=== PATIENT | male | born 1965 | race African-American/Black ===

== ENCOUNTER 2019-11-03 10:22 | Outpatient (CLI) | payer BC ==
--- NOTE | 2019-11-03 15:05 | NM ---
Exam: Nuclear medicine bone scan: HISTORY: Malignant neoplasm of prostate Patient was injected with 31.7 mCi technetium 99m MDP intravenously. Whole body images are performed. No scan evidence for bone metastasis. There is bilateral renal and bladder activity. IMPRESSION: Unremarkable total body bone scan. No scan evidence for metastasis.
== END 2019-11-03 10:23 | disposition home or self-care (01) ==
LOC: NM 10:22
PROVIDERS: ATTEND Internal Medicine Interventional Cardiology
DX: C61 Malignant neoplasm of prostate (principal)
CPT/HCPCS: 78306; A9503

== ENCOUNTER 2021-05-27 11:36 | Inpatient (IN) | payer MEDICARE ==
[2021-05-27] MEDS ORDERED: niCARdipine 20MG In NaCl 20 MG/200 ML BAG ONE ×2 (11:56→13:36)
[2021-05-27] MEDS ORDERED: SODIUM CHLORIDE 0.9% IVPB PRN ×2 (13:40→14:14)
[2021-05-27] MEDS ORDERED: NICARDIPINE IVPB PRN ×2 (13:40→14:14)
[2021-05-27 15:38] LABS: CKMB 4.4 ng/mL (0-6.6)
[2021-05-27] MEDS: hydrALAZINE 25 MG TAB PO SCH (21:00)
[2021-05-27] MEDS ORDERED: Pravastatin Sodium 20 MG TAB PO SCH (21:00)
[2021-05-27] MEDS: Carvedilol 6.25 MG TAB PO SCH (21:58)
[2021-05-27] MEDS: Isosorbide Dinitrate 20 MG TAB PO SCH (21:59)
[2021-05-27] MEDS: Simvastatin 10 MG TAB PO SCH (21:59)
[2021-05-27 22:26] LABS: HBSAg Index 0.23 S/CO (0-0.99); Hep B Surf Ag Non-Reactive S/CO (NonReactive)
[2021-05-28] MEDS: hydrALAZINE 25 MG TAB PO SCH ×3 (00:12→21:47)
[2021-05-28 04:47] LABS: #Eosinphils 0.2 thou/uL (0.0-0.7); #Monocytes 0.6 thou/uL (0.11-0.59); #Neutrophils 3.6 thou/uL (1.40-6.50); %Basophils 0.7 % (0.0-1.0); %Eosinophils 4.3 % (0.0-10.0); %Monocytes 10.5 % (0.0-10.0); %Neutrophils 66.6 % (42.0-75.0); Hemoglobin 9.7 g/dL (14.0-18.0); Mean Corpuscular HGB CONC 30.4 g/dL (32.0-36.0); Mean Corpuscular Hemoglobin 31.1 pg (27.0-31.0); Platelet Count 274 thou/uL (130-400); RBC Distribution Width 18.7 % (11.5-14.5); Red Blood Cell (RBC) Count 3.11 mill/uL (4.70-6.10); White Blood Cell (WBC) Count 5.4 thou/uL (4.8-10.8)
[2021-05-28 05:04] LABS: Anion Gap 13 mmol/L (10-20); BUN (Urea Nitrogen) 16 mg/dL (8.4-25.7); Calc. Creatinine Clearance 24 mL/min (70-130); Calcium 8.4 mg/dL (7.8-10.44); Carbon Dioxide 30 mmol/L (22-29); Cardiac Risk 4.2 (Less than 4.5); Chloride 97 mmol/L (98-107); Cholesterol 194 mg/dl (< 200 Desired); Glucose 95 mg/dL (70-105); HDL Cholesterol 46 mg/dL (>60 Neg Risk); LDL Cholesterol, Calculated 128 mg/dL; Potassium 4.2 mmol/L (3.5-5.1); Sodium 136 mmol/L (136-145); Triglycerides 102 mg/dL (Less than 150)
[2021-05-28] MEDS: Isosorbide Dinitrate 20 MG TAB PO SCH ×2 (10:00→21:48)
[2021-05-28] MEDS: Carvedilol 6.25 MG TAB PO SCH ×2 (10:00→21:47)
[2021-05-28] MEDS ORDERED: niCARdipine 20MG In NaCl 20 MG/200 ML BAG ONE (14:31)
[2021-05-28] MEDS ORDERED: Dextrose 5% in Water 1,000 ML IV PRN (14:55)
[2021-05-28] MEDS ORDERED: Dextrose 50% Abboject 50 ML SYRINGE SLOW IVP PRN (14:55)
[2021-05-28] MEDS ORDERED: HumaLOG 300 UNITS/3 ML VIAL SC PRN ×2 (14:55)
[2021-05-28] MEDS: Simvastatin 10 MG TAB PO SCH (21:48)
[2021-05-29] MEDS ORDERED: niCARdipine 40MG In NaCl 40 MG/200 ML BAG IVPB SCH (05:00)
[2021-05-29] MEDS ORDERED: niCARdipine 40MG In NaCl 40 MG/200 ML BAG IVPB PRN (05:00)
[2021-05-29 06:02] LABS: Anion Gap 17 mmol/L (10-20); BUN (Urea Nitrogen) 24 mg/dL (8.4-25.7); Calc. Creatinine Clearance 18 mL/min (70-130); Calcium 8.2 mg/dL (7.8-10.44); Carbon Dioxide 26 mmol/L (22-29); Chloride 99 mmol/L (98-107); Glucose 93 mg/dL (70-105); Potassium 4.6 mmol/L (3.5-5.1); Sodium 137 mmol/L (136-145)
[2021-05-29] MEDS: hydrALAZINE 25 MG TAB PO SCH ×2 (11:01→20:58)
[2021-05-29] MEDS: Isosorbide Dinitrate 20 MG TAB PO SCH ×2 (11:01→20:59)
[2021-05-29] MEDS: Carvedilol 6.25 MG TAB PO SCH ×2 (11:01→20:59)
[2021-05-29] MEDS: Amlodipine 10 MG TAB PO SCH (11:02)
[2021-05-29] MEDS: Simvastatin 10 MG TAB PO SCH (20:59)
[2021-05-30] MEDS: hydrALAZINE 20 MG/ML VIAL SLOW IVP PRN (06:24)
[2021-05-30] MEDS: hydrALAZINE 25 MG TAB PO SCH ×2 (07:49→20:15)
[2021-05-30] MEDS: Amlodipine 10 MG TAB PO SCH (07:49)
[2021-05-30] MEDS: Isosorbide Dinitrate 20 MG TAB PO SCH ×2 (07:49→20:14)
[2021-05-30] MEDS: Carvedilol 6.25 MG TAB PO SCH ×2 (07:49→20:15)
[2021-05-30 09:56] VITALS: BMI 30.4
[2021-05-30] MEDS ORDERED: hydrALAZINE 25 MG TAB PO SCH (10:15)
[2021-05-30] MEDS ORDERED: Hydrochlorothiazide 25 MG TAB PO SCH ×2 (10:15→10:30)
[2021-05-30] MEDS: Simvastatin 10 MG TAB PO SCH (20:14)
[2021-05-31] MEDS: Hydrochlorothiazide 25 MG TAB PO SCH (08:16)
[2021-05-31] MEDS: Carvedilol 6.25 MG TAB PO SCH ×2 (08:16→20:40)
[2021-05-31] MEDS: Amlodipine 10 MG TAB PO SCH (08:17)
[2021-05-31] MEDS: hydrALAZINE 25 MG TAB PO SCH ×2 (08:17→20:39)
[2021-05-31] MEDS: Isosorbide Dinitrate 20 MG TAB PO SCH ×2 (08:17→20:39)
[2021-05-31] MEDS: hydrALAZINE 20 MG/ML VIAL SLOW IVP PRN (16:22)
[2021-05-31] MEDS: Simvastatin 10 MG TAB PO SCH (20:39)
[2021-06-01] MEDS: Hydrochlorothiazide 25 MG TAB PO SCH (08:08)
[2021-06-01] MEDS: hydrALAZINE 25 MG TAB PO SCH ×2 (08:08→20:42)
[2021-06-01] MEDS: Isosorbide Dinitrate 20 MG TAB PO SCH ×2 (08:08→20:43)
[2021-06-01] MEDS: Amlodipine 10 MG TAB PO SCH (08:08)
[2021-06-01] MEDS: Carvedilol 6.25 MG TAB PO SCH ×2 (08:08→20:42)
[2021-06-01] MEDS: Simvastatin 10 MG TAB PO SCH (20:41)
[2021-06-02 05:15] LABS: #Eosinphils 0.1 thou/uL (0.0-0.7); #Lymphocytes 1.1 thou/uL (1.20-3.40); #Monocytes 0.6 thou/uL (0.11-0.59); %Eosinophils 3.1 % (0.0-10.0); %Lymphocytes 22.1 % (21.0-51.0); %Monocytes 13.1 % (0.0-10.0); %Neutrophils 61.7 % (42.0-75.0); Hemoglobin 10.6 g/dL (14.0-18.0); Mean Corpuscular HGB CONC 31.8 g/dL (32.0-36.0); Mean Corpuscular Hemoglobin 31.4 pg (27.0-31.0); Mean Corpuscular Volume 98.8 fL (78.0-98.0); Mean Platelet Volume 8.5 fL (7.4-10.4); Platelet Count 261 thou/uL (130-400); RBC Distribution Width 17.5 % (11.5-14.5); Red Blood Cell (RBC) Count 3.39 mill/uL (4.70-6.10); White Blood Cell (WBC) Count 4.8 thou/uL (4.8-10.8)
[2021-06-02 05:33] LABS: Anion Gap 15 mmol/L (10-20); BUN (Urea Nitrogen) 31 mg/dL (8.4-25.7); Calc. Creatinine Clearance 13 mL/min (70-130); Calcium 9.1 mg/dL (7.8-10.44); Carbon Dioxide 29 mmol/L (22-29); Chloride 97 mmol/L (98-107); Glucose 105 mg/dL (70-105); Sodium 137 mmol/L (136-145)
[2021-06-02] MEDS: hydrALAZINE 25 MG TAB PO SCH ×2 (09:08→21:03)
[2021-06-02] MEDS: Carvedilol 6.25 MG TAB PO SCH ×2 (09:09→21:03)
[2021-06-02] MEDS: Isosorbide Dinitrate 20 MG TAB PO SCH ×2 (09:09→21:03)
[2021-06-02] MEDS: Amlodipine 10 MG TAB PO SCH (09:09)
[2021-06-02] MEDS: Hydrochlorothiazide 25 MG TAB PO SCH (09:09)
[2021-06-02] MEDS: Simvastatin 10 MG TAB PO SCH (21:04)
[2021-06-03 05:50] LABS: #Eosinphils 0.2 thou/uL (0.0-0.7); #Lymphocytes 1.1 thou/uL (1.20-3.40); #Monocytes 0.6 thou/uL (0.11-0.59); #Neutrophils 3.5 thou/uL (1.40-6.50); %Basophils 0.2 % (0.0-1.0); %Eosinophils 3.3 % (0.0-10.0); %Lymphocytes 20.5 % (21.0-51.0); %Monocytes 11.2 % (0.0-10.0); %Neutrophils 64.8 % (42.0-75.0); Hemoglobin 10.6 g/dL (14.0-18.0); Mean Corpuscular HGB CONC 32.6 g/dL (32.0-36.0); Mean Corpuscular Hemoglobin 31.9 pg (27.0-31.0); Mean Platelet Volume 8.4 fL (7.4-10.4); Platelet Count 279 thou/uL (130-400); RBC Distribution Width 17.3 % (11.5-14.5); Red Blood Cell (RBC) Count 3.31 mill/uL (4.70-6.10); White Blood Cell (WBC) Count 5.4 thou/uL (4.8-10.8)
[2021-06-03 06:12] LABS: Anion Gap 16 mmol/L (10-20); BUN (Urea Nitrogen) 40 mg/dL (8.4-25.7); Calc. Creatinine Clearance 9 mL/min (70-130); Calcium 9.1 mg/dL (7.8-10.44); Carbon Dioxide 29 mmol/L (22-29); Chloride 98 mmol/L (98-107); Glucose 110 mg/dL (70-105); Sodium 139 mmol/L (136-145)
[2021-06-03] MEDS: Amlodipine 10 MG TAB PO SCH (09:24)
[2021-06-03] MEDS: Carvedilol 6.25 MG TAB PO SCH ×2 (09:24→21:37)
[2021-06-03] MEDS: hydrALAZINE 25 MG TAB PO SCH ×2 (09:25→21:38)
[2021-06-03] MEDS: Hydrochlorothiazide 25 MG TAB PO SCH (09:25)
[2021-06-03] MEDS: Isosorbide Dinitrate 20 MG TAB PO SCH ×2 (09:25→21:39)
[2021-06-03] MEDS: Simvastatin 10 MG TAB PO SCH (21:39)
[2021-06-04 04:52] LABS: #Eosinphils 0.2 thou/uL (0.0-0.7); #Lymphocytes 1.2 thou/uL (1.20-3.40); #Monocytes 0.7 thou/uL (0.11-0.59); #Neutrophils 3.7 thou/uL (1.40-6.50); %Basophils 0.3 % (0.0-1.0); %Eosinophils 2.6 % (0.0-10.0); %Lymphocytes 21.5 % (21.0-51.0); %Monocytes 11.9 % (0.0-10.0); %Neutrophils 63.7 % (42.0-75.0); Hemoglobin 10.9 g/dL (14.0-18.0); Mean Corpuscular HGB CONC 31.6 g/dL (32.0-36.0); Mean Corpuscular Hemoglobin 31.2 pg (27.0-31.0); Mean Corpuscular Volume 98.7 fL (78.0-98.0); Mean Platelet Volume 8.6 fL (7.4-10.4); Platelet Count 284 thou/uL (130-400); RBC Distribution Width 17.3 % (11.5-14.5); White Blood Cell (WBC) Count 5.7 thou/uL (4.8-10.8)
[2021-06-04 05:09] LABS: Anion Gap 16 mmol/L (10-20); BUN (Urea Nitrogen) 25 mg/dL (8.4-25.7); Calc. Creatinine Clearance 12 mL/min (70-130); Calcium 9.7 mg/dL (7.8-10.44); Carbon Dioxide 30 mmol/L (22-29); Chloride 98 mmol/L (98-107); Glucose 112 mg/dL (70-105); Potassium 4.6 mmol/L (3.5-5.1); Sodium 139 mmol/L (136-145)
[2021-06-04] MEDS: Hydrochlorothiazide 25 MG TAB PO SCH (08:51)
[2021-06-04] MEDS: Isosorbide Dinitrate 20 MG TAB PO SCH ×2 (08:51→20:10)
[2021-06-04] MEDS: Carvedilol 6.25 MG TAB PO SCH ×2 (08:52→20:09)
[2021-06-04] MEDS: Amlodipine 10 MG TAB PO SCH (08:52)
[2021-06-04] MEDS: hydrALAZINE 25 MG TAB PO SCH ×2 (08:52→20:10)
[2021-06-04] MEDS: Simvastatin 10 MG TAB PO SCH (20:10)
[2021-06-05 04:56] LABS: #Eosinphils 0.2 thou/uL (0.0-0.7); #Lymphocytes 1.4 thou/uL (1.20-3.40); #Monocytes 0.8 thou/uL (0.11-0.59); #Neutrophils 4.2 thou/uL (1.40-6.50); %Basophils 0.3 % (0.0-1.0); %Eosinophils 2.7 % (0.0-10.0); %Lymphocytes 21.6 % (21.0-51.0); %Monocytes 12.1 % (0.0-10.0); %Neutrophils 63.3 % (42.0-75.0); Hemoglobin 11.1 g/dL (14.0-18.0); Mean Corpuscular Hemoglobin 31.9 pg (27.0-31.0); Mean Corpuscular Volume 99.5 fL (78.0-98.0); Mean Platelet Volume 8.6 fL (7.4-10.4); Platelet Count 296 thou/uL (130-400); RBC Distribution Width 17.3 % (11.5-14.5); Red Blood Cell (RBC) Count 3.49 mill/uL (4.70-6.10); White Blood Cell (WBC) Count 6.6 thou/uL (4.8-10.8)
[2021-06-05 05:20] LABS: Anion Gap 14 mmol/L (10-20); BUN (Urea Nitrogen) 40 mg/dL (8.4-25.7); Calc. Creatinine Clearance 10 mL/min (70-130); Calcium 9.4 mg/dL (7.8-10.44); Carbon Dioxide 29 mmol/L (22-29); Chloride 97 mmol/L (98-107); Glucose 103 mg/dL (70-105); Potassium 4.4 mmol/L (3.5-5.1); Sodium 136 mmol/L (136-145)
[2021-06-05] MEDS: Isosorbide Dinitrate 20 MG TAB PO SCH ×2 (13:32→20:37)
[2021-06-05] MEDS: Amlodipine 10 MG TAB PO SCH (13:33)
[2021-06-05] MEDS: Carvedilol 6.25 MG TAB PO SCH ×2 (13:34→20:36)
[2021-06-05] MEDS: hydrALAZINE 25 MG TAB PO SCH ×2 (13:34→20:36)
[2021-06-05] MEDS: Hydrochlorothiazide 25 MG TAB PO SCH (13:34)
[2021-06-05] MEDS: Simvastatin 10 MG TAB PO SCH (20:38)
[2021-06-06] MEDS: Carvedilol 6.25 MG TAB PO SCH ×2 (00:16→08:01)
[2021-06-06] MEDS: Isosorbide Dinitrate 20 MG TAB PO SCH ×2 (00:17→08:01)
[2021-06-06 05:13] LABS: #Basophils 0.1 thou/uL (0.0-0.2); #Eosinphils 0.1 thou/uL (0.0-0.7); #Lymphocytes 1.3 thou/uL (1.20-3.40); #Neutrophils 4.9 thou/uL (1.40-6.50); %Basophils 0.8 % (0.0-1.0); %Eosinophils 1.3 % (0.0-10.0); %Monocytes 13.6 % (0.0-10.0); %Neutrophils 66.3 % (42.0-75.0); Hemoglobin 10.3 g/dL (14.0-18.0); Mean Corpuscular HGB CONC 32.2 g/dL (32.0-36.0); Mean Corpuscular Hemoglobin 31.7 pg (27.0-31.0); Mean Corpuscular Volume 98.6 fL (78.0-98.0); Mean Platelet Volume 8.3 fL (7.4-10.4); Platelet Count 284 thou/uL (130-400); RBC Distribution Width 17.3 % (11.5-14.5); Red Blood Cell (RBC) Count 3.26 mill/uL (4.70-6.10); White Blood Cell (WBC) Count 7.4 thou/uL (4.8-10.8)
[2021-06-06 05:38] LABS: Anion Gap 13 mmol/L (10-20); BUN (Urea Nitrogen) 24 mg/dL (8.4-25.7); Calc. Creatinine Clearance 18 mL/min (70-130); Calcium 9.6 mg/dL (7.8-10.44); Carbon Dioxide 31 mmol/L (22-29); Chloride 98 mmol/L (98-107); Glucose 115 mg/dL (70-105); Potassium 4.9 mmol/L (3.5-5.1); Sodium 137 mmol/L (136-145)
[2021-06-06] MEDS: hydrALAZINE 25 MG TAB PO SCH (12:10)
[2021-06-06] MEDS ORDERED: Sodium Chloride 0.9% 200 ML IV PRN (15:13)
[2021-06-06 16:01] VITALS: BP 141/66; TEMP 99.4
[2021-06-07] MEDS ORDERED: Carvedilol 3.125 MG TAB PO SCH (09:00)
== END 2021-06-06 21:00 | DRG 40 ==
LOC: ERS 11:36 → ERHOLD 12:20 → 2SE 05-29 08:37
PROVIDERS: ADMIT Internal Medicine; ATTEND Internal Medicine
PROC: 0JBR0ZZ Excision of Left Foot Subcutaneous Tissue and Fascia, Open Approach (ICD-10-PCS; principal; 2021-06-04)
DX: I61.9 Nontraumatic intracerebral hemorrhage, unspecified (principal); N18.6 End stage renal disease; G93.41 Metabolic encephalopathy; E87.1 Hypo-osmolality and hyponatremia; N17.9 Acute kidney failure, unspecified; I13.2 Hypertensive heart and chronic kidney disease with heart failure and with stage 5 chronic kidney disease, or end stage renal disease; I16.1 Hypertensive emergency; D63.1 Anemia in chronic kidney disease; E88.09 Other disorders of plasma-protein metabolism, not elsewhere classified; E78.5 Hyperlipidemia, unspecified; I50.9 Heart failure, unspecified; E11.22 Type 2 diabetes mellitus with diabetic chronic kidney disease; E11.42 Type 2 diabetes mellitus with diabetic polyneuropathy; R29.710 NIHSS score 10; S91.302A Unspecified open wound, left foot, initial encounter; X58.XXXA Exposure to other specified factors, initial encounter; Z80.9 Family history of malignant neoplasm, unspecified; Z91.81 History of falling; Z99.2 Dependence on renal dialysis; Z89.412 Acquired absence of left great toe; Z89.411 Acquired absence of right great toe; Z88.0 Allergy status to penicillin
CPT/HCPCS: 36415; 36416; 70450; 74230; 80048; 80061; 82553; 84484; 85025; 87340; 90935; 93005; 93306; 93923; 95712; 95819; 95957; 96365; 96366; G0257; J0360